=== PATIENT | female | born 1950 | race Caucasian/White ===

== ENCOUNTER 2016-12-23 14:25 | Outpatient (CLI) | payer OTHER | END 2016-12-23 14:26 | disposition home or self-care (01) | LOC: NC 14:25 | PROVIDERS: ATTEND Nurse Practitioner | DX: F50.01 Anorexia nervosa, restricting type (principal); E63.8 Other specified nutritional deficiencies; M35.9 Systemic involvement of connective tissue, unspecified; F12.929 Cannabis use, unspecified with intoxication, unspecified; G89.4 Chronic pain syndrome; G44.009 Cluster headache syndrome, unspecified, not intractable; I10 Essential (primary) hypertension; E78.5 Hyperlipidemia, unspecified; D50.9 Iron deficiency anemia, unspecified; F43.10 Post-traumatic stress disorder, unspecified; Z79.82 Long term (current) use of aspirin ==

== ENCOUNTER 2016-12-31 09:57 | Outpatient (CLI) | payer OTHER | END 2016-12-31 09:58 | disposition home or self-care (01) | LOC: NC 09:57 | PROVIDERS: ATTEND Nurse Practitioner | DX: F50.01 Anorexia nervosa, restricting type (principal); Z71.3 Dietary counseling and surveillance ==